=== PATIENT | female | born 1960 | race Caucasian/White ===

== ENCOUNTER → 2016-07-10 07:40 | Outpatient (CLI) | payer BC | END | disposition home or self-care (01) | LOC: D.MRI 07-01 13:00 | DX: M25.511 Pain in right shoulder (principal) ==

== ENCOUNTER 2016-10-14 05:20 | Day surgery (SDC) | payer BC ==
[2016-10-13 09:43] LABS: HEMATOCRIT 37.5 % (36.0-48.0); HEMOGLOBIN 12.7 g/dL (12-16); MCH 31.1 pg (26.0-34.0); MCHC 33.9 g/dL (31.0-37.0); MCV 91.9 fL (80.0-100.0); MEAN PLATELET VOLUME 10.9 fL (7.4-10.4); RBC 4.08 10x6/uL (4.00-5.40); RDW 12.8 % (11.5-14.5); WBC 3.1 10x3/uL (4.8-10.8)
[~2016-10-14] VITALS: Ht 170.2 cm; Wt 83.5 kg
[~2016-10-14 05:20] MED LIST: CYCLOBENZAPRINE5 MG PO; CYMBALTA60 MG PO; MOBIC7.5 MG PO; NEURONTIN 300300 MG PO; PRAVACHOL20 MG PO; TRAZODONE HCL50 MG PO; ULTRAM50 MG PO; VALIUM5 MG PO
[2016-10-14 06:31] VITALS: BP 133/82; Ht 170.2 cm; Wt 83.5 kg
[2016-10-14] MEDS ORDERED: HYDROCODONE-APA1 TAB PO (09:12)
--- NOTE | 2016-10-14 12:52 | NUR ---
1100 IV DC WITH CATHER TIP INTACT
--- NOTE | 2016-10-21 13:14 | OP ---
PATIENT NAME: FRANCISCO SHARIF MEDICAL RECORD: [id number] :56 LOCATION:D.OPS ADMISSION DATE: SURGEON: OZ MARTÍNEZ MD OPERATION DATE: 10/14/16 DATE OF OPERATION: 10/14/2016 Orthopedic Surgery Operative Note PREOPERATIVE DIAGNOSES: Rotator cuff tear with impingement syndrome of the right shoulder. POSTOPERATIVE DIAGNOSES: Rotator cuff tear with impingement syndrome of the right shoulder plus severe biceps tendinitis. PROCEDURES: 1. Arthroscopic rotator cuff repair. 2. Arthroscopic biceps tenodesis. 3. Arthroscopic distal clavicle excision done through separate incision -- 1 cm. 4. Arthroscopic subacromial decompression with acromioplasty and bursectomy. SURGEON: Oz Martínez MD. ANESTHESIA: General. INTRAOPERATIVE COMPLICATIONS: None. SUMMARY OF PATHOLOGIC FINDINGS: Consistent with the preoperative diagnoses, the patient had all the above. The biceps tendon was almost completely torn in 2. OPERATIVE SUMMARY IN DETAIL: After obtaining the appropriate preoperative orthopedic surgery consent as well as anesthetic consultation, evaluation and clearance, the patient was brought to the operating room and placed on the operating table in supine position. After adequate general laryngeal mask was administered, the patient was placed in a left lateral decubitus position. All pressure points were well padded to include down leg peroneal pad as well as axillary roll. The patient was held firmly to the operating table using the vacuum pack suction system. Right upper extremity and shoulder were prepped and draped in routine sterile fashion. The arm was held in the [employer] traction boom at 30 degrees of forward for 30 degrees of abduction with 10 pounds of traction laterally. Arthroscopy was established in the glenohumeral joint from a posterior portal. Anterior portal was established in the anterior safe interval. Diagnostic arthroscopy did show the patient to have the above findings. Attention was first turned to the rotator cuff. A transarthroscopic rotator cuff portal was created for debridement of the rotator cuff tear. Having completed this, the decortication was carried out under direct arthroscopic visualization. At this point, the biceps was tenotomized and held in place using a spinal needle. Attention was then turned to the subacromial space. While on subacromial space, 3.5 full radius resector in conjunction with a surface tissue ablation was utilized to denude the undersurface of the acromion of soft tissue elements and a 5-0 barrel gerald was used to perform acromioplasty at the level of acromioclavicular joint. Having completed this, under direct arthroscopic visualization a separate incision was utilized for distal clavicle excision, 1 cm distal clavicle was excised. This was followed OPERATIVE REPORT [id number] ELIZABETH SHARIFLOTTE SAMANTHA by arthroscopic biceps tenodesis. The biceps was tenodesed with a 7-mm screw using the 4 tip system from [employer]. This resulted in excellent biceps tenodesis. Having completed this, arthroscopy portals were closed in routine interrupted fashion using 4-0 Prolene. Sterile dressings were applied. The patient was awakened and taken to the recovery room in stable condition. All final needle and sponge counts were correct. TRANSINT:[id number] Voice Confirmation ID: [id number] DOCUMENT ID: [id number] TANYA CHEUNG, OZ HEAD at 1314 CC: [id number] DICTATION DATE: 10/15/16 1107 PSYCHIATRIC SOCIAL WORKER: 10/21/16 0145 [facility] 10/14/16 [facility] [address] [place] [address]
== END 2016-10-14 11:30 | disposition home or self-care (01) ==
LOC: D.OPS 05:20 → D.PAN 07:30 → D.OPS 11:30
PROVIDERS: Anesthesiology
DX: M75.101 Unspecified rotator cuff tear or rupture of right shoulder, not specified as traumatic (principal); M75.21 Bicipital tendinitis, right shoulder; M75.41 Impingement syndrome of right shoulder; Z01.812 Encounter for preprocedural laboratory examination

== ENCOUNTER → 2017-09-29 08:48 | Outpatient (CLI) | payer MEDICARE, BC ==
[2016-10-14 06:31] VITALS: BMI 28.9
[~2017-09-29 08:48] MED LIST changes: +HYDROCODONE-APA1 TAB PO
== END | disposition home or self-care (01) ==
LOC: D.MRI 08:48
DX: M25.511 Pain in right shoulder (principal)

== ENCOUNTER 2017-11-10 10:30 | Day surgery (SDC) | payer MEDICARE, BC ==
[2017-11-09 15:04] LABS: HEMATOCRIT 37.7 % (36.0-48.0); HEMOGLOBIN 12.6 g/dL (12-16); MCH 30.6 pg (26.0-34.0); MCHC 33.4 g/dL (31.0-37.0); MCV 91.5 fL (80.0-100.0); MEAN PLATELET VOLUME 10.5 fL (7.4-10.4); RBC 4.12 10x6/uL (4.00-5.40); RDW 13.1 % (11.5-14.5); WBC 4.8 10x3/uL (4.8-10.8)
[~2017-11-10] VITALS: Ht 170.2 cm; Wt 83.9 kg
--- NOTE | ~2017-11-10 | OP ---
PATIENT NAME: FRANCISCO PEÑA MEDICAL RECORD: [id number] :56 LOCATION:D.OPS ADMISSION DATE: SURGEON: OZ MARTÍNEZ MD DATE OF OPERATION: 11/10/2017 PREOPERATIVE DIAGNOSIS: Recurrent rotator cuff repair of the right shoulder. POSTOPERATIVE DIAGNOSIS: Recurrent rotator cuff repair of the right shoulder. PROCEDURE: Open rotator cuff repair of the right shoulder. SURGEON: Oz Martínez MD ANESTHESIA: General. INTRAOPERATIVE COMPLICATIONS: None. SUMMARY OF PATHOLOGIC FINDINGS: The patient has recurrent rotator cuff tear posterior to the previously fixed anterior supraspinatus tendon. This was posteriorly and did indeed involve portion of the infraspinatus tendon. OPERATIVE SUMMARY IN DETAIL: After obtaining the appropriate orthopedic surgery consent as well as anesthetic consultation, evaluation and clearance, the patient was brought to the operating room and placed in the operating table in supine position. After general laryngeal mask airway was administered, the patient was placed in beach chair position. All pressure points were padded. She was held firmly to the operating table using the vacuum pack suction system. Right upper extremity and shoulder were then prepped and draped in routine sterile fashion. The arm was held in the Trimano arm holding device. A more slightly posterior incision was made from the true anterior lateral border to reach the rotator cuff tear as seen on the MRI. This was taken down to the level of the superficial and deep deltoid fascia. It was gently spread to reveal the rotator cuff tear. Serial and sequential decortication was carried out over the posterior aspect of the greater tuberosity. The rotator cuff was mobilized with #2 Ethibond. Following this, medial row of the suture bridge was utilized at the cortical articular junction, the tails of which were then passed through, spread, and brought down to the lateral row, which were tamped into place after tapping. Having completed this, the tag anteriorly was then fixed by inverted style FiberTape, which was then anchored anteriorly with a 4.75 SwiveLock. This resulted in good reapproximation of the rotator cuff back to the footprint. Copious irrigation was then followed by closure of the deep deltoid and superficial deltoid. The skin was closed with #1 Vicryl. This was followed by ba. Sterile dressings were applied. The patient was awakened and taken to the recovery room in stable condition. All final needle and sponge counts were correct. TRANSINT:[id number] Voice Confirmation ID: [id number] DOCUMENT ID: [id number] OPERATIVE REPORT [id number] FRANCISCO PEÑA MD, OZ HEAD at 1459 CC: [id number] DICTATION DATE: 11/15/17 1204 [employer]ION AND EMERGENCY CLERK: 11/15/[address] [facility] 11/10/17 [place] [id number]
[2017-11-10 11:18] VITALS: BP 123/75; Ht 170.2 cm; Wt 83.9 kg
[2017-11-10] MEDS ORDERED: HYDROCODONE-APA1 TAB PO (16:49)
== END 2017-11-10 18:53 | disposition home or self-care (01) ==
LOC: D.OPS 10:30 → D.PAN 14:15 → D.OPS 14:55
PROVIDERS: Anesthesiology
DX: S43.421A Sprain of right rotator cuff capsule, initial encounter (principal)